=== PATIENT | female | born 1995 | race Caucasian/White ===

== ENCOUNTER 2018-03-13 19:10 | Emergency (ER) | payer OTHER ==
[2018-03-13] MEDS ORDERED: Sodium Chloride 0.9% 1000 ML 1,000 ML IV STA (19:25)
[2018-03-13] MEDS ORDERED: BENADRYL 50 MG/ML IV ONE (19:27)
[2018-03-13 19:37] VITALS: PULSE 117; O2SAT 97
[2018-03-13 19:52] LABS: BASOPHIL % 0.7 % (0.0-0.4); Basophil (Absolute #) 0.07 (0-0.4); Eosinophil % 0.3 % (0.00-5.0); Eosinophil (Absolute #) 0.03 (0-0.5); Granulocyte Absolute (ANC) 5.84 (1.4-6.9); Granulocytes % 61.1 % (36.0-66.0); Hematocrit 46.7 % (35-47); Hemoglobin 16.4 gm/dl (12.0-16.0); Lymphocyte (Absolute #) 2.63 (1.0-4.6); Lymphocytes % 27.5 % (24.0-44.0); Mean Cell Volume 84.6 fl (78-100); Mean Corpuscular Hemoglobin 29.7 pg (26-32); Mean Corpuscular Hgb Concent. 35.1 g/dl (32-36); Mean Platelet Volume 11.2 fl (6-9.5); Monocyte (Absolute #) 0.99 (0.0-1.3); Monocytes % 10.4 % (0.0-12.0); Platelet Count 278 K/mm3 (150-450); Red Blood Count 5.52 M/mm3 (4.1-5.4); Red Cell Distribution Width 13.6 % (11.5-14.0); White Blood Count 9.6 K/mm3 (4.0-10.5)
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
[2018-03-13 20:28] LABS: ALBUMIN 5.9 g/dL (3.5-5.0); ALKALINE PHOSPHATASE 79 U/L (38-126); ANION GAP 17.9 MEQ/L (5-15); BLOOD UREA NITROGEN 11 mg/dL (7-17); CHLORIDE 106 mmol/L (98-107); CK-Creatinine Phosphokinase 107 U/L (30-135); Calcium 10.8 mg/dL (8.4-10.2); Carbon Dioxide 23 mmol/L (22-30); Creatinine 1 1.05 mg/dL (0.52-1.04); Glucose 97 mg/dL (74-106); NT PRO BNP 155 pg/mL (0-450); Potassium 3.6 mmol/L (3.5-5.1); SGOT/AST 26 U/L (14-36); SGPT/ALT 16 U/L (0-35); SODIUM 143 mmol/L (137-145); Total Protein 9.7 g/dL (6.3-8.2)
[2018-03-13 20:29] LABS: ETHYL ALCOHOL < 10 mg/dL (0-10)
[2018-03-13 20:36] LABS: INR 1.13 (0.8-3.0)
[2018-03-13 20:41] LABS: PTT 27.4 SECONDS (25.3-37.0)
== END 2018-03-13 20:11 | disposition left against medical advice (07) ==
LOC: ED 19:10
DX: F41.9 Anxiety disorder, unspecified (principal)
CPT/HCPCS: 36000; 36415; 80053; 80307; 82550; 83735; 83880; 84443; 84484; 85025; 85610; 85730; 93005; 99284; G0480

== ENCOUNTER 2018-03-23 10:36 | Emergency (ER) | payer OTHER ==
[2018-03-23] MEDS ORDERED: TORAdol 30 mg Injection IM ONE (10:57)
--- NOTE | 2018-03-23 10:57 | ERPHSYRPT ---
- History of Present Illness Time Seen by Provider: 03/23/18 10:52 Source: patient, family (boyfreind) Exam Limitations: no limitations Patient Subjective Stated Complaint: pt here for toothache to upper right jaw for 4-5 days Triage Nursing Assessment: pt alert, resp easy, skin w/d/p/ Physician History: The patient is a 23-year-old female with her boyfriend complaining of a swollen and tender right upper wisdom tooth and gum area for 4-5 days. She has poor dentition. They recently moved here from [place]. She has not been to see a dentist. She denies fever or chills. She denies problems with swallowing. Timing/Duration: gradual onset, days (4) Severity: moderate ENT Location: dental Prearrival Treatment: no prearrival treatment Modifying Factors: Improves With: nothing Associated Symptoms: jaw pain, tooth pain, No fever, No drooling, No swollen glands, No sore throat Allergies/Adverse Reactions: acetaminophen [From Darvocet-N] Allergy (Verified 03/23/18 10:46) amoxicillin Allergy (Verified 03/23/18 10:46) lorazepam [From Ativan] Allergy (Verified 03/23/18 10:46) propoxyphene [From Darvocet-N] Allergy (Verified 03/23/18 10:46) Hx Tetanus, Diphtheria Vaccination/Date Given: Yes (2) Hx Influenza Vaccination/Date Given: No Hx Pneumococcal Vaccination/Date Given: No Immunizations Up to Date: Yes - Review of Systems Constitutional: No Fever, No Chills Eyes: No Symptoms Ears, Nose, & Throat: Mouth Pain Respiratory: No Cough, No Dyspnea Cardiac: No Chest Pain, No Edema, No Syncope Abdominal/Gastrointestinal: No Abdominal Pain, No Nausea, No Vomiting, No Diarrhea Genitourinary Symptoms: No Dysuria Musculoskeletal: No Back Pain, No Neck Pain Skin: No Rash Neurological: No Dizziness, No Focal Weakness, No Sensory Changes Psychological: No Symptoms Endocrine: No Symptoms Hematologic/Lymphatic: No Symptoms Immunological/Allergic: No Symptoms All Other Systems: Reviewed and Negative - Past Medical History Pertinent Past Medical History: No Neurological History: No Pertinent History ENT History: No Pertinent History Cardiac History: No Pertinent History Respiratory History: No Pertinent History Endocrine Medical History: No Pertinent History Musculoskeletal History: No Pertinent History GI Medical History: No Pertinent History History: No Pertinent History Psycho-Social History: Attention Deficit Disorder, Bipolar, Depression Female Reproductive Disorders: No Pertinent History - Past Surgical History Past Surgical History: Yes Neuro Surgical History: No Pertinent History Cardiac: No Pertinent History Respiratory: No Pertinent History Gastrointestinal: No Pertinent History Genitourinary: No Pertinent History Musculoskeletal: No Pertinent History Female Surgical History: No Pertinent History Other Surgical History: tubes - Social History Smoking Status: Current every day smoker How long have you smoked: 1 Exposure to second hand smoke: Yes Drug Use: none Patient Lives Alone: No - Female History Hx Last Menstrual Period: 2 days ago Hx Now: No - Nursing Vital Signs Nursing Vital Signs: Initial Vital Signs Temperature 97.9 F 03/23/18 10:41 Pulse Rate 73 03/23/18 10:41 Respiratory Rate 16 03/23/18 10:41 Blood Pressure 133/106 03/23/18 10:41 O2 Sat by Pulse Oximetry 99 03/23/18 10:41 Pain Scale Pain Intensity 7 - Physical Exam General Appearance: no apparent distress, alert Eye Exam: bilateral eye: PERRL, EOMI Ear Exam: bilateral ear: auricle normal Nasal Exam: normal inspection Throat Exam: dental tenderness (upper right wisdom tooth. with decay.), maxillary swelling (swelling of tissure surrouding posterior right wisdom tooth) Neck Exam: supple Cardiovascular/Respiratory Exam: normal breath sounds, regular rate/rhythm Abdominal Exam: non-tender, soft Neurologic Exam: alert, oriented x 3, sensation nml, No motor deficits Skin Exam: normal color, warm, dry SpO2 Interpretation: normal SpO2: 99 Oxygen Delivery: Room Air - Progress Progress: improved Counseled pt/family regarding: diagnosis, need for follow-up - Departure Time of Disposition: 10:57 Departure Disposition: Home Clinical Impression: Dental abscess Condition: Stable Critical Care Time: No Referrals: DOCTOR,NO FAMILY [Primary Care Provider] - Additional Instructions: You have a dental abscess surrounding the wisdom tooth in your right upper jaw. You were given Toradol 60 mg IM in the ER. Take clindamycin 300 mg 4 times a day for 10 days. Take naproxen 500 mg 2 times a day as needed. You have been given a list of dentists in the area. Selected dentist from the list in follow- up with the dentist next week. Prescriptions: Clindamycin HCl 300 mg PO QID #40 capsule Naproxen 500 mg PO BID PRN #30 tablet
[2018-03-23] MEDS ORDERED: TORAdol 30 mg Injection ONE (11:01)
[2018-03-23 11:09] VITALS: BP 125/74; PULSE 80; O2SAT 98
== END 2018-03-23 11:19 | disposition home or self-care (01) ==
LOC: ED 10:36
DX: K04.7 Periapical abscess without sinus (principal)
CPT/HCPCS: 96372; 99283; J1885

== ENCOUNTER 2018-04-20 14:52 | Emergency (ER) | payer OTHER ==
[2018-04-20 15:39] VITALS: BP 137/70; PULSE 81; O2SAT 99
== END 2018-04-20 16:24 | disposition left against medical advice (07) ==
LOC: ED 14:52
DX: Z53.21 Procedure and treatment not carried out due to patient leaving prior to being seen by health care provider (principal)
CPT/HCPCS: 99283; G0463

== ENCOUNTER 2018-06-01 10:12 | Emergency (ER) | payer OTHER ==
--- NOTE | 2018-06-01 10:20 | ERPHSYRPT ---
- History of Present Illness Time Seen by Provider: 06/01/18 10:14 Historian: patient, family Exam Limitations: no limitations Physician History: 23 y/o white female presents with left lower quadrant abd pain with radiation to left flank since this am at 0500. nausea but no vomiting. pt has had several episodes of diarrhea. never had this before. no vomiting. no other individuals with same issues. Timing/Duration: hour(s) (6) Activities at Onset: none Quality: cramping Abdominal Pain Onset Location: LLQ, flank (left) Pain Radiation: flank (left) Severity of Pain-Max: mild Severity of Pain-Current: mild Modifying Factors: Improves With: nothing. Worsens With: coughing, defecating, urinating, vomiting Associated Symptoms: diarrhea, nausea, No fever/chills, No vomiting Previous symptoms: no prior history Allergies/Adverse Reactions: acetaminophen [From Darvocet-N] Allergy (Verified 06/01/18 10:27) amoxicillin Allergy (Verified 06/01/18 10:27) lorazepam [From Ativan] Allergy (Verified 06/01/18 10:27) propoxyphene [From Darvocet-N] Allergy (Verified 06/01/18 10:27) Hx Tetanus, Diphtheria Vaccination/Date Given: Yes Hx Influenza Vaccination/Date Given: No Hx Pneumococcal Vaccination/Date Given: No - Review of Systems Constitutional: No Symptoms, No Fever Eyes: No Symptoms Ears, Nose, & Throat: No Symptoms Respiratory: No Symptoms, No Cough, No Dyspnea, No Stridor, No Wheezing Cardiac: No Symptoms, No Chest Pain, No Palpitations, No Syncope Abdominal/Gastrointestinal: Abdominal Pain (llq), Nausea, Diarrhea Genitourinary Symptoms: No Symptoms, No Dysuria, No Frequency, No Hematuria Musculoskeletal: No Symptoms Skin: No Symptoms Neurological: No Symptoms Psychological: No Symptoms Endocrine: No Symptoms Hematologic/Lymphatic: No Symptoms Immunological/Allergic: No Symptoms All Other Systems: Reviewed and Negative - Past Medical History Pertinent Past Medical History: Yes Neurological History: No Pertinent History ENT History: No Pertinent History Cardiac History: No Pertinent History Respiratory History: No Pertinent History Endocrine Medical History: No Pertinent History Musculoskeletal History: Other GI Medical History: No Pertinent History History: No Pertinent History Psycho-Social History: Bipolar Female Reproductive Disorders: No Pertinent History - Past Surgical History Past Surgical History: Yes Neuro Surgical History: No Pertinent History Cardiac: No Pertinent History Respiratory: No Pertinent History Gastrointestinal: No Pertinent History Genitourinary: No Pertinent History Musculoskeletal: No Pertinent History Female Surgical History: No Pertinent History Other Surgical History: tube in ears - Social History Smoking Status: Current every day smoker How long have you smoked: 9 Exposure to second hand smoke: Yes Drug Use: none Patient Lives Alone: Yes - Nursing Vital Signs Nursing Vital Signs: Initial Vital Signs Temperature 97.6 F 06/01/18 10:18 Pulse Rate 59 L 06/01/18 10:18 Respiratory Rate 18 06/01/18 10:18 Blood Pressure 134/67 06/01/18 10:18 O2 Sat by Pulse Oximetry 100 06/01/18 10:18 Pain Scale Pain Intensity 6 - Physical Exam General Appearance: mild distress, alert, anxiety Eye Exam: PERRL/EOMI, eyes nml inspection Ears, Nose, Throat Exam: normal ENT inspection, moist mucous membranes Neck Exam: normal inspection, non-tender, supple, full range of motion Respiratory Exam: normal breath sounds, lungs clear, airway intact, No chest tenderness, No respiratory distress, No accessory muscle use, No rhonchi, No wheezing, No stridor Cardiovascular Exam: regular rate/rhythm, normal heart sounds, normal peripheral pulses Gastrointestinal/Abdomen Exam: soft, normal bowel sounds, tenderness (llq), No guarding, No rebound Pelvic Exam: not done Rectal Exam: not done Back Exam: normal inspection, normal range of motion, No CVA tenderness, No vertebral tenderness Extremity Exam: normal inspection, normal range of motion, pelvis stable Neurologic Exam: alert, oriented x 3, cooperative, 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 Skin Exam: normal color, warm, dry Lymphatic Exam: No adenopathy SpO2 Interpretation: normal Oxygen Delivery: Room Air - Course Nursing assessment & vital signs reviewed: Yes Ordered Tests: Active Orders 24 hr Category Date Time Status Clean Catch Urine Specimen STAT Care 06/01/18 10:40 Active IV Insertion STAT Care 06/01/18 10:40 Active ABDOMEN AND PELVIS W/0 CONTRAS [CT] Stat Exams 06/01/18 13:09 Taken AMYLASE Stat Lab 06/01/18 10:49 Completed CBC W DIFF Stat Lab 06/01/18 10:49 Completed CMP Stat Lab 06/01/18 10:49 Completed HCG,QUALITATIVE URINE Stat Lab 06/01/18 12:00 Completed LIPASE Stat Lab 06/01/18 10:49 Completed Lactic Acid Stat Lab 06/01/18 10:40 Completed UA W/RFX UR CULTURE Stat Lab 06/01/18 12:00 Completed Medication Summary Discontinued Medications Generic Name Dose Route Start Last Admin Trade Name Chuy PRN Reason Stop Dose Admin Sodium Chloride 1,000 mls @ 999 mls/hr 06/01/18 10:40 06/01/18 11:57 Sodium Chloride 0.9% 1000 Ml IV 06/01/18 11:40 Infused .Q1H1M STA Infusion Sodium Chloride Confirm 06/01/18 10:53 Sodium Chloride 0.9% 1000 Ml Administered 06/01/18 10:54 Dose 1,000 mls @ ud .ROUTE .STK-MED ONE Lab/Rad Data: Laboratory Result Diagrams 06/01/18 10:49 06/01/18 10:49 Laboratory Results 06/01/18 06/01/18 06/01/18 Range/Units 12:00 12:00 10:49 WBC (4.0-10.5) K/mm3 RBC (4.1-5.4) M/mm3 Hgb (12.0-16.0) gm/dl Hct (35-47) % MCV (78-100) fl MCH (26-32) pg MCHC (32-36) g/dl RDW (11.5-14.0) % Plt Count (150-450) K/mm3 MPV (6-9.5) fl Gran % (36.0-66.0) % Eos # (Auto) (0-0.5) Absolute Lymphs (auto) (1.0-4.6) Absolute Monos (auto) (0.0-1.3) Lymphocytes % (24.0-44.0) % Monocytes % (0.0-12.0) % Eosinophils % (0.00-5.0) % Basophils % (0.0-0.4) % Absolute Granulocytes (1.4-6.9) Basophils # (0-0.4) Sodium 140 (137-145) mmol/L Potassium 4.0 (3.5-5.1) mmol/L Chloride 106 (98-107) mmol/L Carbon Dioxide 26 (22-30) mmol/L Anion Gap 11.3 (5-15) MEQ/L BUN 14 (7-17) mg/dL Creatinine 0.73 (0.52-1.04) mg/dL Estimated GFR > 60.0 ML/MIN Glucose 97 (74-106) mg/dL Lactic Acid (0.4-2.0) Calcium 9.7 (8.4-10.2) mg/dL Total Bilirubin 0.30 (0.2-1.3) mg/dL AST 22 (14-36) U/L ALT 12 (0-35) U/L Alkaline Phosphatase 69 (38-126) U/L Serum Total Protein 7.9 (6.3-8.2) g/dL Albumin 4.8 (3.5-5.0) g/dL Amylase 67 (30-110) U/L Lipase 71 (23-300) U/L Urine Color YELLOW (YELLOW) Urine Appearance CLEAR (CLEAR) Urine pH 6.0 (5-6) Ur Specific [place] 1.017 (1.005-1.025) Urine Protein NEGATIVE (Negative) Urine Ketones NEGATIVE (NEGATIVE) Urine Blood MODERATE (0-5) John/ul Urine Nitrite NEGATIVE (NEGATIVE) Urine Bilirubin NEGATIVE (NEGATIVE) Urine Urobilinogen NEGATIVE (0-1) mg/dL Ur Leukocyte Esterase NEGATIVE (NEGATIVE) Urine WBC (Auto) 3-5 (0-5) /HPF Urine RBC (Auto) 0-2 (0-2) /HPF U Epithel Cells (Auto) RARE (FEW) /HPF Urine Bacteria (Auto) NONE SEEN (NEGATIVE) /HPF Urine Mucus (Auto) SLIGHT (NEGATIVE) /HPF Urine Culture Reflexed NO (NO) Urine Glucose NEGATIVE (NEGATIVE) mg/dL Urine HCG, Qual NEGATIVE (Negative) 06/01/18 06/01/18 Range/Units 10:49 10:40 WBC 11.9 H (4.0-10.5) K/mm3 RBC 4.91 (4.1-5.4) M/mm3 Hgb 14.5 (12.0-16.0) gm/dl Hct 43.0 (35-47) % MCV 87.6 (78-100) fl MCH 29.5 (26-32) pg MCHC 33.7 (32-36) g/dl RDW 12.9 (11.5-14.0) % Plt Count 234 (150-450) K/mm3 MPV 11.7 H (6-9.5) fl Gran % 81.7 H (36.0-66.0) % Eos # (Auto) 0.15 (0-0.5) Absolute Lymphs (auto) 1.29 (1.0-4.6) Absolute Monos (auto) 0.69 (0.0-1.3) Lymphocytes % 10.9 L (24.0-44.0) % Monocytes % 5.8 (0.0-12.0) % Eosinophils % 1.3 (0.00-5.0) % Basophils % 0.3 (0.0-0.4) % Absolute Granulocytes 9.69 H (1.4-6.9) Basophils # 0.03 (0-0.4) Sodium (137-145) mmol/L Potassium (3.5-5.1) mmol/L Chloride (98-107) mmol/L Carbon Dioxide (22-30) mmol/L Anion Gap (5-15) MEQ/L BUN (7-17) mg/dL Creatinine (0.52-1.04) mg/dL Estimated GFR ML/MIN Glucose (74-106) mg/dL Lactic Acid 1.0 (0.4-2.0) Calcium (8.4-10.2) mg/dL Total Bilirubin (0.2-1.3) mg/dL AST (14-36) U/L ALT (0-35) U/L Alkaline Phosphatase (38-126) U/L Serum Total Protein (6.3-8.2) g/dL Albumin (3.5-5.0) g/dL Amylase (30-110) U/L Lipase (23-300) U/L Urine Color (YELLOW) Urine Appearance (CLEAR) Urine pH (5-6) Ur Specific [place] (1.005-1.025) Urine Protein (Negative) Urine Ketones (NEGATIVE) Urine Blood (0-5) John/ul Urine Nitrite (NEGATIVE) Urine Bilirubin (NEGATIVE) Urine Urobilinogen (0-1) mg/dL Ur Leukocyte Esterase (NEGATIVE) Urine WBC (Auto) (0-5) /HPF Urine RBC (Auto) (0-2) /HPF U Epithel Cells (Auto) (FEW) /HPF Urine Bacteria (Auto) (NEGATIVE) /HPF Urine Mucus (Auto) (NEGATIVE) /HPF Urine Culture Reflexed (NO) Urine Glucose (NEGATIVE) mg/dL Urine HCG, Qual (Negative) - Progress Progress: improved, re-examined Counseled pt/family regarding: lab results, diagnosis, need for follow-up, rad results - Departure Time of Disposition: 14:26 Departure Disposition: Home Clinical Impression: Abdominal pain, left lower quadrant, Diarrhea Condition: Stable Critical Care Time: No Referrals: DOCTOR,NO FAMILY [Primary Care Provider] - Additional Instructions: drink plenty of fluids. follow up with primary doctor for further management. Prescriptions: Metronidazole 500 mg [Flagyl 500 MG] 500 mg PO TID #21 tablet
[2018-06-01] MEDS ORDERED: Sodium Chloride 0.9% 1000 ML 1,000 ML IV STA (10:40)
[2018-06-01] MEDS ORDERED: Sodium Chloride 0.9% 1000 ML 1,000 ML ONE (10:53)
[2018-06-01 11:02] LABS: BASOPHIL % 0.3 % (0.0-0.4); Basophil (Absolute #) 0.03 (0-0.4); Eosinophil % 1.3 % (0.00-5.0); Eosinophil (Absolute #) 0.15 (0-0.5); Granulocyte Absolute (ANC) 9.69 (1.4-6.9); Granulocytes % 81.7 % (36.0-66.0); Hemoglobin 14.5 gm/dl (12.0-16.0); Lymphocyte (Absolute #) 1.29 (1.0-4.6); Lymphocytes % 10.9 % (24.0-44.0); Mean Cell Volume 87.6 fl (78-100); Mean Corpuscular Hemoglobin 29.5 pg (26-32); Mean Corpuscular Hgb Concent. 33.7 g/dl (32-36); Mean Platelet Volume 11.7 fl (6-9.5); Monocyte (Absolute #) 0.69 (0.0-1.3); Monocytes % 5.8 % (0.0-12.0); Platelet Count 234 K/mm3 (150-450); Red Blood Count 4.91 M/mm3 (4.1-5.4); Red Cell Distribution Width 12.9 % (11.5-14.0); White Blood Count 11.9 K/mm3 (4.0-10.5)
[2018-06-01 11:22] LABS: ALBUMIN 4.8 g/dL (3.5-5.0); ALKALINE PHOSPHATASE 69 U/L (38-126); AMYLASE 67 U/L (30-110); ANION GAP 11.3 MEQ/L (5-15); BLOOD UREA NITROGEN 14 mg/dL (7-17); CHLORIDE 106 mmol/L (98-107); Calcium 9.7 mg/dL (8.4-10.2); Carbon Dioxide 26 mmol/L (22-30); Creatinine 1 0.73 mg/dL (0.52-1.04); Glucose 97 mg/dL (74-106); LIPASE 71 U/L (23-300); SGOT/AST 22 U/L (14-36); SGPT/ALT 12 U/L (0-35); SODIUM 140 mmol/L (137-145); Total Protein 7.9 g/dL (6.3-8.2)
[2018-06-01 12:15] LABS: Appearance CLEAR (CLEAR); Bilirubin NEGATIVE (NEGATIVE); Blood MODERATE Ery/ul (0-5); Glucose NEGATIVE (NEGATIVE); Ketones NEGATIVE (NEGATIVE); Leukocyte Esterase NEGATIVE (NEGATIVE); Nitrite NEGATIVE (NEGATIVE); Protein,Urine Dip NEGATIVE (Negative); Specific Gravity 1.017 (1.005-1.025); Urobilinogen NEGATIVE mg/dL (0-1)
[2018-06-01] MEDS ORDERED: Flagyl 500 MG PO ONE (14:28)
[2018-06-01] MEDS ORDERED: Flagyl 500 MG ONE (14:30)
[2018-06-01 14:51] VITALS: BP 118/80; PULSE 66; O2SAT 100
--- NOTE | 2018-06-01 17:29 | XRAY ---
Indication: Left flank and left lower quadrant pain with nausea and vomiting. History kidney stones. Multiple contiguous axial images obtained through the abdomen and pelvis without contrast as ordered. Comparison: None. Lung bases are clear. Heart is not enlarged. Noncontrasted stomach and small bowel loops unremarkable. Normal appendix. Small cul-de-sac fluid presumed physiologic from ruptured/leaking cyst. Remaining liver, gallbladder, pancreas, spleen, adrenal glands, kidneys, ureters, bladder, uterus, and aorta appear unremarkable for noncontrast exam. Osseous structures intact. No ventral or inguinal hernias. Impression: 1. Cul-de-sac fluid presumed physiologic from rupture/leaking cyst. 2. Remaining CT abdomen/pelvis without contrast exam is negative. Comment: Preliminary interpretation was made by [facility]. No discrepancy. CTDI 11.80
== END 2018-06-01 14:49 | disposition home or self-care (01) ==
LOC: ED 10:12
DX: R10.32 Left lower quadrant pain (principal); R19.7 Diarrhea, unspecified; R11.0 Nausea
CPT/HCPCS: 36000; 36415; 74176; 80053; 81001; 82150; 83605; 83690; 84703; 85025; 96360; 99284; A9270-GY

== ENCOUNTER 2018-08-30 21:03 | Emergency (ER) | payer MEDICAID, OTHER ==
--- NOTE | 2018-08-30 21:23 | ERPHSYRPT ---
- History of Present Illness Time Seen by Provider: 08/30/18 21:21 Source: police Exam Limitations: intoxication Patient Subjective Stated Complaint: pt is alert and oriented. pt is ambulatory with a steady gait. pt is coming in via police for medical clearance. pt is weepy. pt is very twitchy and rambling. police officer booking states that pt was driving. pt states that she "should not have been driving." pt denies alcohol use. pt states she did use meth and marijuana earlier today. Triage Nursing Assessment: see above Physician History: pt is coming in via police for medical clearance. pt is weepy. pt is very twitchy and rambling. police officer booking states that pt was driving. pt states that she "should not have been driving." pt denies alcohol use. pt states she did use meth and marijuana earlier today. Timing/Duration: today Allergies/Adverse Reactions: acetaminophen [From Darvocet-N] Allergy (Verified 06/01/18 10:27) amoxicillin Allergy (Verified 06/01/18 10:27) lorazepam [From Ativan] Allergy (Verified 06/01/18 10:27) propoxyphene [From Darvocet-N] Allergy (Verified 06/01/18 10:27) Hx Tetanus, Diphtheria Vaccination/Date Given: Yes Hx Influenza Vaccination/Date Given: No Hx Pneumococcal Vaccination/Date Given: No Immunizations Up to Date: Yes - Review of Systems Constitutional: Other (agitation), No Fever, No Chills Eyes: No Symptoms Ears, Nose, & Throat: No Symptoms Respiratory: No Cough, No Dyspnea Cardiac: No Chest Pain, No Edema, No Syncope Abdominal/Gastrointestinal: No Abdominal Pain, No Nausea, No Vomiting, No Diarrhea Genitourinary Symptoms: No Dysuria Musculoskeletal: No Back Pain, No Neck Pain Skin: No Rash Neurological: No Dizziness, No Focal Weakness, No Sensory Changes Psychological: Alcohol Abuse, Drug Abuse, Anxiety Endocrine: No Symptoms All Other Systems: Reviewed and Negative - Past Medical History Pertinent Past Medical History: Yes Neurological History: No Pertinent History ENT History: No Pertinent History Cardiac History: No Pertinent History Respiratory History: No Pertinent History Endocrine Medical History: No Pertinent History Musculoskeletal History: Other GI Medical History: Colitis History: No Pertinent History Psycho-Social History: Bipolar Female Reproductive Disorders: No Pertinent History Other Medical History: SCOLIOSIS. ARTH IN BACK - Past Surgical History Past Surgical History: Yes Neuro Surgical History: No Pertinent History Cardiac: No Pertinent History Respiratory: No Pertinent History Gastrointestinal: No Pertinent History Genitourinary: No Pertinent History Musculoskeletal: No Pertinent History Female Surgical History: No Pertinent History Other Surgical History: tube in ears - Social History Smoking Status: Current every day smoker How long have you smoked: 8 years Exposure to second hand smoke: Yes Drug Use: marijuana, methamphetamines, narcotics Patient Lives Alone: Yes - Female History Hx Last Menstrual Period: August 05, 2017 Hx Now: Yes - Nursing Vital Signs Nursing Vital Signs: Initial Vital Signs Temperature 97.6 F 08/30/18 21:06 Pulse Rate 116 H 08/30/18 21:06 Respiratory Rate 18 08/30/18 21:06 Blood Pressure 169/96 08/30/18 21:06 O2 Sat by Pulse Oximetry 100 08/30/18 21:06 Pain Scale Pain Intensity 5 - Physical Exam General Appearance: moderate distress Eye Exam: PERRL/EOMI Ears, Nose, Throat Exam: normal ENT inspection Neck Exam: normal inspection Respiratory Exam: normal breath sounds Cardiovascular Exam: regular rate/rhythm Gastrointestinal/Abdomen Exam: soft Neurologic Exam: agitation, intoxicated appearance Skin Exam: normal color SpO2: 100 - Course Nursing assessment & vital signs reviewed: Yes Ordered Tests: Active Orders 24 hr Category Date Time Status ETHYL ALCOHOL Stat Lab 08/30/18 21:30 Completed Urine Triage Profile Stat Lab 08/30/18 21:22 Completed Lab/Rad Data: Laboratory Results 08/30/18 08/30/18 Range/Units 21:30 21:22 Urine Opiates Level NEGATIVE (NEGATIVE) Ur Methadone POSITIVE (NEGATIVE) Urine Barbiturates NEGATIVE (NEGATIVE) Ur Phencyclidine (PCP) NEGATIVE (NEGATIVE) Urine Amphetamine POSITIVE (NEGATIVE) U Benzodiazepine Level NEGATIVE (NEGATIVE) Urine Cocaine NEGATIVE (NEGATIVE) Urine Marijuana (THC) POSITIVE (NEGATIVE) Ethyl Alcohol < 10 (0-10) mg/dL - Progress Progress: unchanged Counseled pt/family regarding: diagnosis, need for follow-up - Departure Time of Disposition: 21:22 Departure Disposition: Senior Care/Senior Living Clinical Impression: 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
[2018-08-30 21:45] LABS: Barbiturate,Urine NEGATIVE (NEGATIVE); Benzodiazepine,Urine NEGATIVE (NEGATIVE); Cocaine,Urine NEGATIVE (NEGATIVE); Methadone,Urine POSITIVE (NEGATIVE); Opiate,Urine NEGATIVE (NEGATIVE); PCP,Urine NEGATIVE (NEGATIVE); THC,Urine POSITIVE (NEGATIVE)
[2018-08-30 22:06] VITALS: BP 162/96; PULSE 130
[2018-08-30 22:27] LABS: Amphetamine,Urine POSITIVE (NEGATIVE)
[2018-08-30 22:32] VITALS: O2SAT 100
== END 2018-08-30 22:38 | disposition home or self-care (01) ==
LOC: ED 21:03
DX: F15.90 Other stimulant use, unspecified, uncomplicated (principal); T50.995A Adverse effect of other drugs, medicaments and biological substances, initial encounter; F12.90 Cannabis use, unspecified, uncomplicated
CPT/HCPCS: 36415; 80307; 99283; G0480

== ENCOUNTER 2019-02-02 14:59 | Emergency (ER) | payer MEDICAID | END 2019-02-02 16:27 | disposition left against medical advice (07) | LOC: ED 14:59 ==

== ENCOUNTER 2021-03-14 16:32 | Observation (INO) | payer OTHER ==
[2021-03-14 17:25] VITALS: BP 131/76; PULSE 68
== END 2021-03-14 18:08 | disposition home or self-care (01) ==
LOC: OB 16:32
PROVIDERS: ADMIT Obstetrics & Gynecology; ATTEND Obstetrics & Gynecology
DX: O26.613 Liver and biliary tract disorders in pregnancy, third trimester (principal); L29.9 Pruritus, unspecified; Z3A.33 33 weeks gestation of pregnancy
CPT/HCPCS: 59025; G0378

== ENCOUNTER 2021-03-21 13:15 | Observation (INO) | payer OTHER ==
[2021-03-21 14:00] VITALS: BP 134/72; PULSE 96
== END 2021-03-21 14:48 | disposition home or self-care (01) ==
LOC: UNDOADMOB 13:15 → OB 13:15 → UNDODISOB 14:48
PROVIDERS: ADMIT Obstetrics & Gynecology; ATTEND Obstetrics & Gynecology
DX: O26.613 Liver and biliary tract disorders in pregnancy, third trimester (principal); Z3A.34 34 weeks gestation of pregnancy
CPT/HCPCS: 59025; G0378

== ENCOUNTER 2021-03-31 10:42 | Observation (INO) | payer OTHER ==
[2021-03-31 11:45] VITALS: BP 126/69; PULSE 72; O2SAT 98
[2021-03-31 12:14] LABS: Amphetamine,Urine NEGATIVE (NEGATIVE); Barbiturate,Urine NEGATIVE (NEGATIVE); Benzodiazepine,Urine NEGATIVE (NEGATIVE); Cocaine,Urine NEGATIVE (NEGATIVE); Methadone,Urine NEGATIVE (NEGATIVE); Opiate,Urine NEGATIVE (NEGATIVE); PCP,Urine NEGATIVE (NEGATIVE); THC,Urine NEGATIVE (NEGATIVE)
== END 2021-03-31 11:31 | disposition home or self-care (01) ==
LOC: OB 10:42
PROVIDERS: ADMIT Obstetrics & Gynecology; ATTEND Obstetrics & Gynecology
DX: Z34.83 Encounter for supervision of other normal pregnancy, third trimester (principal); Z3A.35 35 weeks gestation of pregnancy
CPT/HCPCS: 59025; 80307; G0378

== ENCOUNTER 2021-04-04 12:14 | Observation (INO) | payer OTHER ==
[2021-04-04 12:39] VITALS: BP 130/87; PULSE 71
--- NOTE | 2021-04-04 13:27 | XRAY ---
Indication: Cholestasis. History of substance abuse. Ultrasound biophysical profile study was performed. Single intrauterine with heart rate 146 BPM. Four-quadrant ALANNA is 15.4 cm, largest pocket 5.1 cm. 2 points given for breathing, movements, tone, and qualitative amniotic fluid volume. Impression: Total biophysical profile score is 8 out of 8.
== END 2021-04-04 13:22 | disposition home or self-care (01) ==
LOC: OB 12:14
PROVIDERS: ADMIT Family Medicine; ATTEND Family Medicine
DX: O26.613 Liver and biliary tract disorders in pregnancy, third trimester (principal); K83.1 Obstruction of bile duct; Z3A.36 36 weeks gestation of pregnancy; F19.11 Other psychoactive substance abuse, in remission
CPT/HCPCS: 59025; 76818; G0378

== ENCOUNTER 2021-08-09 08:23 | Day surgery (SDC) | payer OTHER ==
[~2021-08-09 08:23] MED LIST: ASTRINGYN 8 GM TP ONE; Lactated Ringers 1,000 ML IV ONE; XYLOCAINE 1%/Epi 1:100000 MDV 20 ML ONE
[2021-08-09] MEDS ORDERED: Decadron 4 MG INJ ONE (08:54)
[2021-08-09] MEDS ORDERED: DIPRIVAN 200 MG/20 ML IV ONE (08:54)
[2021-08-09] MEDS ORDERED: Xylocaine-Mpf 2% 5 Ml Vial ONE (08:54)
[2021-08-09] MEDS ORDERED: Zofran 4 MG/2 ML VIAL ONE (08:54)
[2021-08-09] MEDS ORDERED: Ketamine HCl 50 MG/ML ONE (08:56)
[2021-08-09] MEDS ORDERED: TORAdol 30 mg Injection ONE (09:00)
[2021-08-09] MEDS ORDERED: ROBINUL ONE (09:00)
[2021-08-09] MEDS ORDERED: Lactated Ringers 1,000 ML IV ONE (09:02)
[2021-08-09] MEDS ORDERED: Versed 2 MG/2 ML Injection IV PRN (09:06)
[2021-08-09] MEDS ORDERED: Lactated Ringers 1,000 ML IV SCH (09:30)
[2021-08-09 14:10] VITALS: O2SAT 97
[2021-08-09 14:21] VITALS: BP 134/74; PULSE 74
--- NOTE | 2021-08-10 08:55 | OP ---
SURGERY DATE/TIME: 08/09/2021 0953 PREOPERATIVE DIAGNOSIS: Severe cervical dysplasia. POSTOPERATIVE DIAGNOSIS: Severe cervical dysplasia. PROCEDURE: Loop electrosurgical excision procedure. SURGEON: Kiel Haskins D.O. QUALITY ASSURANCE INSPECTOR: Cassidy Ramires surgical attendant. ANESTHESIA: General. ESTIMATED BLOOD LOSS: Minimal. COMPLICATIONS: None. INDICATIONS: The risks, benefits, indications and alternatives of the procedure were reviewed with the patient prior to procedure. The patient understood the risk of infection, bleeding, uterine perforation, cervical incompetence associated with the surgery however desires to have this surgery as a possible means to alleviate her current medical condition. DESCRIPTION OF PROCEDURE AND FINDINGS: At this point the patient is taken to the operating room, given general sedation, placed in dorsal lithotomy position, prepped and draped in the usual sterile fashion. A coated speculum is then placed in the vaginal region where 1% lidocaine was then used circumferentially in the cervix as anesthetic purpose. From this point the loop instrument was then grasped and with a right to left motion ectocervical tissue was excised approximately 7 to 8 mm of tissue in depth was excised without complication. An additional 2 or 3 mm of endocervical tissue was excised in similar fashion in a right to left motion. From this point, hemostasis was obtained by placing a loop medical record transcriber ball on the surface of the cervix for further coagulation. At this point, there was no bleeding that was noted from her cervix. Monsel solution was subsequently placed. At this point all instruments were then removed from the patient's vaginal region. At this point, the patient was taken out of the dorsal lithotomy position, was taken out of anesthesia and was then taken to the recovery room in stable condition. All instruments and laps were accounted for x2.
== END 2021-08-09 11:40 | disposition home or self-care (01) ==
LOC: SDC 08:23
PROVIDERS: ATTEND Obstetrics & Gynecology
DX: D06.9 Carcinoma in situ of cervix, unspecified (principal)
CPT/HCPCS: 84703; J1100; J1885; J2250; J2405; J2704; A9270-GY